=== PATIENT | female | born 1995 | race Caucasian/White ===

== ENCOUNTER 2018-04-17 02:50 | Emergency (ER) | payer OTHER ==
--- NOTE | 2018-04-17 03:44 | ER Document Report ---
ED GI/ - General Chief Complaint: Shortness Of Breath Stated Complaint: SHORTNESS OF BREATH Time Seen by Provider: 04/17/18 03:26 Mode of Arrival: Ambulatory Information source: Patient Notes: Patient is a 22-year-old female who presents with chief complaint of epigastric pain. Patient reports the pain is worse when she takes a deep breath. Patient reports the pain started approximately 2 hours after she ate spicy meatballs and mac & cheese with promptly. Patient reports nausea but denies vomiting, diarrhea or fevers. Patient denies any history of any abdominal surgeries. Patient denies any abnormal vaginal discharge or urinary symptoms. TRAVEL OUTSIDE OF THE [place] IN LAST 30 DAYS: No Past Medical History - General Information source: Patient - Social History Smoking Status: Never Smoker Frequency of alcohol use: None Drug Abuse: None Family History: Reviewed & Not Pertinent - Medical History Medical History: Negative Surgical Hx: Negative Review of Systems - Review of Systems Gastrointestinal: See HPI -: Yes All other systems reviewed and negative Physical Exam - Vital signs Vitals: Temp Pulse Resp BP Pulse Ox 98.6 F 77 18 131/91 H 97 04/17/18 02:50 04/17/18 02:50 04/17/18 02:50 04/17/18 02:50 04/17/18 02:50 - Notes Notes: PHYSICAL EXAMINATION: GENERAL: Well-appearing, well-nourished and in no acute distress. HEAD: Atraumatic, normocephalic. EYES: Pupils equal round and reactive to light, extraocular movements intact, conjunctiva are normal. ENT: Nares patent, oropharynx clear without exudates. Moist mucous membranes. NECK: Normal range of motion, supple without lymphadenopathy LUNGS: Breath sounds clear to auscultation bilaterally and equal. No wheezes rales or rhonchi. HEART: Regular rate and rhythm without murmurs ABDOMEN: Soft, nontender, nondistended abdomen. No guarding, no rebound. No masses appreciated. Female : No CVA tenderness. Musculoskeletal: Normal range of motion, no pitting or edema. No cyanosis. NEUROLOGICAL: Cranial nerves grossly intact. Normal speech, normal gait. Normal sensory, motor exams PSYCH: Normal mood, normal affect. SKIN: Warm, Dry, normal turgor, no rashes or lesions noted. Course - Re-evaluation Re-evalutation: CBC with mildly elevated white blood count of 11.2, no shift noted. Comprehensive metabolic panel reveals AST 47, ALT 77, lipase is normal at 215. Gallbladder ultrasound with trace pericholecystic fluid. Patient given p.o. challenge and is able to tolerate p.o. fluids without difficulty. Spoke with Dr. Samaniego who recommends starting patient on Omnicef, discharged home as long as she is tolerating p.o. with surgical follow-up. Patient given referral to [facility], patient also given strict ED return precautions as outlined in her discharge instructions. Patient in stable condition upon discharge. - Vital Signs Vital signs: Temp Pulse Resp BP Pulse Ox 97.7 F 76 16 127/96 H 100 04/17/18 06:17 04/17/18 06:17 04/17/18 06:17 04/17/18 06:17 04/17/18 06:17 - Laboratory Result Diagrams: 04/17/18 03:50 04/17/18 03:50 Laboratory results interpreted by me: 04/17/18 04/17/18 04/17/18 03:50 03:50 03:50 WBC 11.2 H MCH 26.9 L RDW 14.8 H Sodium 146.2 H AST 47 H ALT 77 H Total Protein 8.4 H Urine Blood SMALL H Ur Leukocyte Esterase TRACE H Discharge - Discharge Condition: Stable Disposition: HOME, SELF-CARE Additional Instructions: Gallbladder Disease Your evaluation shows evidence of gallbladder disease. The gallbladder is a pouch under the liver which stores bile. Stones, infection, or irritation of the gallbladder cause attacks of pain. Certain foods -- fats in particular -- may provoke attacks. The usual treatment for gallbladder disease is surgical removal of the gallbladder -- called a cholecystectomy. You will be referred to a physician qualified to advise you on the best treatment for your problem. Hospitalization is not necessary. Take clear liquids only until you are painfree. After that, you should stay on a low-fat diet, with frequent SMALL meals. Call the doctor or return at once if you develop severe pain, repeated vomiting, fever, or jaundice (a yellow color in the skin and whites of the eyes) . Please take medications as prescribed. I am giving you contact info for our surgeon. Please call them today to set up an appointment. They will be able to review all your your labs and imaging that were done tonight in the emergency department. Please follow the diet as outlined above please return for any of the above symptoms. Prescriptions: Cefdinir 300 mg PO BID #20 capsule Referrals: ERAN IZQUIERDO MD [ACTIVE STAFF] - Follow up as needed
[2018-04-17 04:03] LABS: ABSOLUTE BASOPHILS # (AUTO) 0.1 10^3/uL (0.0-0.2); ABSOLUTE EOSINOPHILS # (AUTO) 0.3 10^3/uL (0.0-0.6); ABSOLUTE LYMPHOCYTES (AUTO) 3.2 10^3/uL (0.5-4.7); ABSOLUTE MONOCYTES (AUTO) 0.8 10^3/uL (0.1-1.4); ABSOLUTE NEUT (AUTO) 6.8 10^3/uL (1.7-8.2); BASOPHILS % (AUTO) 0.7 % (0-2); HEMATOCRIT 42.2 % (36.0-47.0); LYMPHOCYTES % (AUTO) 28.9 % (13-45); MEAN CORPUSCULAR HEMOGLOBIN 26.9 pg (27.0-33.4); MEAN CORPUSCULAR HGB CONC 33.2 g/dL (32.0-36.0); MEAN CORPUSCULAR VOLUME 81 fl (80-97); MONOCYTES % (AUTO) 6.7 % (3-13); PLATELET COUNT 324 10^3/uL (150-450); RED BLOOD COUNT 5.21 10^6/uL (3.72-5.28); RED CELL DISTRIBUTION WIDTH 14.8 % (11.5-14.0); SEGMENTED NEUTROPHILS % (AUTO) 60.7 % (42-78); TOTAL CELLS COUNTED % (AUTO) 100 %; WHITE BLOOD COUNT 11.2 10^3/uL (4.0-10.5)
[2018-04-17 04:34] LABS: ALANINE AMINOTRANSFERASE 77 U/L (9-52); ALBUMIN 4.9 g/dL (3.5-5.0); ALKALINE PHOSPHATASE 62 U/L (38-126); ANION GAP 16 (5-19); ASPARTATE AMINO TRANSFERASE 47 U/L (14-36); BILIRUBIN,DIRECT 0.3 mg/dL (0.0-0.4); BILIRUBIN,TOTAL 0.4 mg/dL (0.2-1.3); BLOOD UREA NITROGEN 10 mg/dL (7-20); CALCIUM 10.1 mg/dL (8.4-10.2); CARBON DIOXIDE 25 mmol/L (22-30); CHLORIDE 105 mmol/L (98-107); GLUCOSE 87 mg/dL (75-110); LIPASE 215.4 U/L (23-300); POTASSIUM 3.9 mmol/L (3.6-5.0); SODIUM 146.2 mmol/L (137-145); TOTAL PROTEIN 8.4 g/dL (6.3-8.2)
[2018-04-17 04:56] LABS: APPEARANCE,URINE CLOUDY; BILIRUBIN,URINE NEGATIVE (NEGATIVE); COLOR,URINE YELLOW; GLUCOSE, URINE NEGATIVE (NEGATIVE); KETONES,URINE NEGATIVE (NEGATIVE); LEUKOCYTE ESTERASE,URINE TRACE (NEGATIVE); NITRITE,URINE NEGATIVE (NEGATIVE); PROTEIN,URINE NEGATIVE (NEGATIVE); URINE SPECIFIC GRAVITY 1.016; UROBILINOGEN,URINE NEGATIVE mg/dL (<2.0)
--- NOTE | 2018-04-17 05:23 | RADIOLOGY REPORT (SQ) ---
EXAM DESCRIPTION: US ABDOMEN LIMITED COMPLETED DATE/TME: 04/17/2018 03:41 CLINICAL HISTORY: 22 years Female, epigastric pain after eating Comparison: None. LIMITATIONS: None. FINDINGS: Gallbladder, 0.5 cm gallbladder wall thickness, trace pericholecystic fluid, negative sonographic Donnelly's test, liver, a 0.4-cm diameter common bile duct, no intrahepatic ductal dilation, 10-cm right kidney, partially obscured pancreas, visualized vasculature/abdominal aorta, and no significant ascites appear otherwise unremarkable. IMPRESSION: Trace pericholecystic fluid, nonspecific. Limited visualization of the pancreas.
[2018-04-17 06:19] VITALS: BP 127/96
== END 2018-04-17 06:19 | disposition home or self-care (01) ==
LOC: ER 02:50
DX: K82.9 Disease of gallbladder, unspecified (principal); R06.02 Shortness of breath; R10.13 Epigastric pain; R11.0 Nausea
CPT/HCPCS: 36415; 76705; 80053; 81001; 81025; 83690; 85025; 99285